=== PATIENT | female | born 1995 | race Two or more races ===

== ENCOUNTER 2020-11-26 16:28 | Emergency (ER) | payer OTHER ==
[~2020-11-26] VITALS: Ht 162.6 cm; Wt 86.0 kg
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
--- NOTE | 2020-11-26 17:30 | NUR ---
pt instructed to provide clean catch ua. pt up to bathroom with steady gait.
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
[2020-11-26 18:46] LABS: HCG UR SG 1.042 (1.003-1.030)
--- NOTE | 2020-11-26 18:56 | NUR ---
BEDSIDE REPORT GIVEN TO MACHO JACKSON
--- NOTE | 2020-11-26 18:58 | NUR ---
PRECEPTOR RN NOTE: REPORT GIVEN TO RADHA RN AND NUBIA RN AT BEDSIDE, PT IS IN CT SCAN AT THIS TIME.
--- NOTE | 2020-11-26 19:04 | NUR ---
Pt back from CT. Pending results.
--- NOTE | 2020-11-26 19:05 | NUR ---
Florencio, mid level, made aware of pts urine specimen that appears, dark cloudy in nature. Reccs for possible UA to assess for UTI.
[2020-11-26 19:27] LABS: MICROSCOPIC INDICATED
--- NOTE | 2020-11-26 19:48 | NUR ---
Lab confirmed, UA and cx running at this time.
--- NOTE | 2020-11-26 20:13 | NUR ---
Pt resting comfortably at this time, updated on CT results. UA results pending. Pt denies needs.
[2020-11-26 20:26] VITALS: BP 105/62
== END 2020-11-26 20:26 | disposition home or self-care (01) ==
LOC: ED 17:40
DX: S06.0X0A Concussion without loss of consciousness, initial encounter (principal); W18.00XA Striking against unspecified object with subsequent fall, initial encounter; Y93.89 Activity, other specified; Y92.099 Unspecified place in other non-institutional residence as the place of occurrence of the external cause; Y99.8 Other external cause status
CPT/HCPCS: 36415; 70450; 81001; 81025; 84703; 87086; 99284